=== PATIENT | male | born 1960 | race Hispanic/Latino ===

== ENCOUNTER → 2017-09-23 | Outpatient (CLI) | payer BC ==
[~2017-09-23] MED LIST: GEMFIBROZIL600 MG PO
--- NOTE | 2017-09-23 15:41 | Diagnostic Imaging Report ---
PROCEDURE:X-RAY RIGHT HEEL COMPARISON:None. INDICATIONS:RIGHT HEEL PAIN FOR 2-3 MONTHS FINDINGS: BONES: Normal mineralization. No acute , displaced fracture or dislocation. No lytic or blastic lesion. Joint spaces are within normal limits. No enthesophyte is visualized. SOFT TISSUES:Negative. OTHER:Negative. CONCLUSION: No acute abnormalities. Carlos Terrazas M.D. Dictated by: Carlos Terrazas M.D. on 09/23/2017 at 15:43 Electronically approved by: Carlos Terrazas M.D. on 09/23/2017 at 15:43
== END ==
LOC: RAD 14:49
PROVIDERS: ATTEND Family Medicine
DX: M79.671 Pain in right foot (principal)

== ENCOUNTER 2021-11-18 10:34 | Emergency (ER) | payer BC ==
[~2021-11-18] VITALS: Ht 167.6 cm; Wt 77.1 kg
[2021-11-18] MEDS ORDERED: TETANUS/DIPHTHERIA TOX ADULT 0.5 ML SYR IM ONE (11:00)
[2021-11-18 11:58] VITALS: BP 136/76
== END 2021-11-18 12:00 | disposition home or self-care (01) ==
LOC: ER 10:37
DX: S61.432A Puncture wound without foreign body of left hand, initial encounter (principal); S61.532A Puncture wound without foreign body of left wrist, initial encounter; W26.8XXA Contact with other sharp object(s), not elsewhere classified, initial encounter; Y93.H2 Activity, gardening and landscaping; Y92.017 Garden or yard in single-family (private) house as the place of occurrence of the external cause; I10 Essential (primary) hypertension; E78.5 Hyperlipidemia, unspecified; Z23 Encounter for immunization
CPT/HCPCS: 90471; 90714; 99283

== ENCOUNTER → 2022-07-18 | Day surgery (SDC) | payer BC ==
[~2022-07-18] MED LIST changes: +AMLODIPINE BESYL5 MG PO; +LANSOPRAZOLE30 MG; +METOPROLOL TART25 MG PO; +PROPOFOL IV EMULSION 10 MG/ML 20 ML VIAL ONE
[2022-07-18 08:05] VITALS: BP 112/82
== END | disposition home or self-care (01) ==
LOC: OR 07:07
PROVIDERS: ATTEND Internal Medicine Gastroenterology
DX: Z09 Encounter for follow-up examination after completed treatment for conditions other than malignant neoplasm (principal); D12.5 Benign neoplasm of sigmoid colon; D12.8 Benign neoplasm of rectum; K64.8 Other hemorrhoids; K21.9 Gastro-esophageal reflux disease without esophagitis; I10 Essential (primary) hypertension; Z01.810 Encounter for preprocedural cardiovascular examination; Z79.899 Other long term (current) drug therapy
CPT/HCPCS: 45385; 88305; 93005; J2704; 45378; 88304